=== PATIENT | female | born 1970 | race Caucasian/White ===

== ENCOUNTER 2016-08-05 12:44 | Emergency (ER) | payer OTHER ==
[2016-08-05] MEDS ORDERED: NS 0.9% 1000 ML* 1,000 ML IV ONE (13:53)
[2016-08-05] MEDS ORDERED: Ketorolac INJ* 30 MG/ML 1 ML VIAL IV ONE (13:53)
[2016-08-05] MEDS ORDERED: Clindamycin 900 MG IVPREMIX(* 900 MG/50 ML SDV IV ONE (13:53)
[2016-08-05 14:19] LABS: Hematocrit 38 % (35-47); Hemoglobin 12.6 g/dl (12.0-16.0); Mean Corpuscular HGB Conc 33 g/dl (31-36); Mean Corpuscular Hemoglobin 29 pg (27-31); Mean Corpuscular Volume 89 fL (80-97); Mean Platelet Volume 8 um3 (7.4-10.4); Red Blood Count 4.29 10^6/ul (4.0-5.4); Red Cell Distribution Width 14 % (10.5-15); White Blood Count 8.9 10^3/ul (3.5-10.8)
[2016-08-05 14:35] LABS: Albumin 3.8 g/dL (3.2-5.2); C Reactive Protein 21.47 mg/L (< 5.00); Calcium 9.5 mg/dL (8.6-10.3); EGFR African American 129.7 (>60); EGFR Non-African American 100.9 (>60); Globulin 3.5 g/dL (2-4); Potassium 4.3 mmol/L (3.5-5.0); Total Bilirubin 0.5 mg/dL (0.2-1.0); Total Protein 7.3 g/dL (6.4-8.9)
[2016-08-05] MEDS ORDERED: Morphine INJ* 4 MG/ML 1 ML SYRINGE IV ONE (14:59)
[2016-08-05] MEDS ORDERED: Ondansetron INJ* 2 MG/ML VIAL IV ONE (14:59)
[2016-08-05] MEDS ORDERED: Ondansetron INJ* 2 MG/ML VIAL ONE (15:00)
[2016-08-05] MEDS ORDERED: Morphine INJ* 4 MG/ML 1 ML SYRINGE ONE (15:00)
[2016-08-05] MEDS ORDERED: Iohexol 300* (CONTRAST) 10 ML SDV IV ONE (15:25)
--- NOTE | 2016-08-05 15:42 | RAD ---
HISTORY: Right eyelid and facial swelling COMPARISONS: None TECHNIQUE: Multiple contiguous axial CT scans were obtained of the face without intravenous contrast, with coronal and sagittal multiplanar reformations. FINDINGS: BONES: There is no displaced fracture or dislocation. The orbital rim is intact. The zygomatic arch is intact. The pterygoid plates are intact. ORBITS: There is preorbital soft tissue swelling of the right without post septal or intraconal extension. Within the preseptal soft tissue swelling, there is a peripherally enhancing loculated fluid collection measuring approximately 0.7 x 0.7 x 1.4 cm in size. PARANASAL SINUSES: The paranasal sinuses are clear. BRAIN AND SOFT TISSUE: Unremarkable. OTHER: None. IMPRESSION: RIGHT ORBITAL PRESEPTAL SOFT TISSUE SWELLING WITH A LOCULATED FLUID COLLECTION MEASURING APPROXIMATELY 1.4 CM IN SIZE, CONSISTENT WITH SUBCUTANEOUS ABSCESS. THERE IS NO POST SEPTAL OR INTRACONAL EXTENSION
--- NOTE | 2016-08-05 16:01 | ED ---
Throat Pain/Nasal Congestion - HPI Summary HPI Summary: Patient presents with right eyelid swelling and redness for approximately one week that began after she tried to pop a pimple on her eyelid. At first the eyelid was only mildly swollen and after a few days she thought it was improving. Then two days ago it became worse again, so she went to see her PCP. They placed her on keflex and gave her a shot of rocephine and had her follow- up then next day. She had not improved but had not worsened, so she followed-up again today and was referred to the ED since she had not improved. She is uncertain if she has pain with eye movement, but the lid is exquisitely tender. She has been using ice and ibuprofen for pain. She denies fever, chills, or pus- like drainage. She has a scab on the right eyelid and has only had scant clear drainage. 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 Onset/Duration: Gradual Onset Severity: Severe Associated Signs And Symptoms: Positive: Negative Cough: None <Sunny Cedillo - Last Filed: 08/05/16 16:40> <Mirian Nieves - Last Filed: 08/06/16 07:58> - History of Current Complaint Chief Complaint: EDEyeProblem Time Seen by Provider: 08/05/16 13:14 - Allergies/Home Medications Allergies/Adverse Reactions: Allergies Allergy/AdvReac Type Severity Reaction Status Date / Time Sulfa Drugs Allergy Severe Hives Verified 01/03/14 16:27 Clarithromycin [From Biaxin] AdvReac Unknown See Comment Verified 01/03/14 16:27 PMH/Surg Hx/FS Hx/Imm Hx Endocrine/Hematology History: Reports: Other Endocrine/Hematological Disorders - LUPUS Denies: Hx Anticoagulant Therapy, Hx Blood Disorders, Hx Blood Transfusions, Hx Bone Marrow Disease, Hx Diabetes, Hx Systemic Lupus Erythematosus, Hx Sickle Cell Disease, Hx Thyroid Disease, Hx Anemia, Hx Unexplained Bleeding Cardiovascular History: Denies: Hx Congestive Heart Failure, Hx Hypertension History: Denies: Hx Renal Disease Musculoskeletal History: Reports: Hx Fibromyalgia Denies: Hx Arthritis, Hx Back Problems, Hx Bursitis, Hx Congenital Bone Abnormalities, Hx Gout, Hx Orthopedic Injury, Hx Osteoporosis, Hx Scoliosis, Hx Tendonitis, Other Musculoskeletal History - Cancer History Hx Chemotherapy: No Hx Radiation Therapy: No - Surgical History Surgery Procedure, Year, and Place: APPENDECTOMY, CHOLECYSTECTOMY, UTERINE ABLASION, BILAT LEG COMPARTMENT SYNDROME, TUBAL Infectious Disease History: No Infectious Disease History: Denies: Traveled Outside the [place] in Last 30 Days - Family History Known Family History: Positive: None - Social History Occupation: Unemployed Lives: With Family Alcohol Use: None Substance Use Type: Reports: Heroin, Other Substance Use Comment - Amount & Last Used: injects opana Smoking Status (MU): Heavy Every Day Tobacco Smoker Type: Cigarettes Amount Used/How Often: 1PPD Length of Time of Smoking/Using Tobacco: on and off for 20 years Have You Smoked in the Last Year: Yes Cessation Counseling: Patient Advised to Stop <Sunny Cedillo - Last Filed: 08/05/16 16:40> Review of Systems Negative: Fever, Chills Positive: Erythema - right eyelid. Negative: Blurred Vision, Diplopia, Drainage Negative: Headache All Other Systems Reviewed And Are Negative: Yes <Sunny Cedillo - Last Filed: 08/05/16 16:40> Physical Exam Triage Information Reviewed: Yes Vital Signs On Initial Exam: Initial Vitals Temp Pulse Resp BP Pulse Ox 97.8 F 73 20 107/72 100 08/05/16 12:55 08/05/16 12:55 08/05/16 12:55 08/05/16 12:55 08/05/16 12:55 Vital Signs Reviewed: Yes Appearance: Positive: Well-Nourished, Ill-Appearing, Pain Distress Skin: Positive: Warm, Skin Color Reflects Adequate Perfusion, Dry, Soft, Erythema @ - right eyelid Head/Face: Positive: Normal Head/Face Inspection Eyes: Positive: EOMI - left, BILLY - left, Conjunctiva Clear - left, Other: - Right eyelid is erythematous with severe edema; there is a healing scab on the central eyelid without obvious drainage; I am unable to open the eyelid due to pain and tension on the tissues. ENT: Positive: Hearing grossly normal, Pharynx normal, TMs normal Neck: Positive: Supple, Nontender, No Lymphadenopathy Respiratory/Lung Sounds: Positive: Breath Sounds Present Cardiovascular: Positive: RRR Neurological: Positive: Sensory/Motor Intact, Alert, Oriented to Person Place, Time, NV Bundle Intact Distally Psychiatric: Positive: Affect/Mood Appropriate AVPU Assessment: Alert <Sunny Cedillo Carmen - Last Filed: 08/05/16 16:40> Vital Signs On Initial Exam: Initial Vitals Temp Pulse Resp BP Pulse Ox 97.8 F 73 20 107/72 100 08/05/16 12:55 08/05/16 12:55 08/05/16 12:55 08/05/16 12:55 08/05/16 12:55 <Mirian Nieves - Last Filed: 08/06/16 07:58> Diagnostics - Vital Signs Vital Signs Temp Pulse Resp BP Pulse Ox 08/05/16 15:05 20 08/05/16 13:04 97.8 F 73 18 107/72 97 08/05/16 12:55 97.8 F 73 20 107/72 100 - Laboratory Lab Results: Lab Results 08/05/16 08/05/16 Range/Units 14:00 14:00 WBC 8.9 (3.5-10.8) 10^3/ul RBC 4.29 (4.0-5.4) 10^6/ul Hgb 12.6 (12.0-16.0) g/dl Hct 38 (35-47) % MCV 89 (80-97) fL MCH 29 (27-31) pg MCHC 33 (31-36) g/dl RDW 14 (10.5-15) % Plt Count 210 (150-450) 10^3/ul MPV 8 (7.4-10.4) um3 Neut % (Auto) 67.8 (38-83) % Lymph % (Auto) 24.1 L (25-47) % Brantley % (Auto) 5.9 (1-9) % Eos % (Auto) 1.3 (0-6) % Baso % (Auto) 0.9 (0-2) % Absolute Neuts (auto) 6.0 (1.5-7.7) 10^3/ul Absolute Lymphs (auto) 2.1 (1.0-4.8) 10^3/ul Absolute Monos (auto) 0.5 (0-0.8) 10^3/ul Absolute Eos (auto) 0.1 (0-0.6) 10^3/ul Absolute Basos (auto) 0.1 (0-0.2) 10^3/ul Absolute Nucleated RBC 0.01 10^3/ul Nucleated RBC % 0.1 Sodium 133 (133-145) mmol/L Potassium 4.3 (3.5-5.0) mmol/L Chloride 101 (101-111) mmol/L Carbon Dioxide 25 (22-32) mmol/L Anion Gap 7 (2-11) mmol/L BUN 12 (6-24) mg/dL Creatinine 0.63 (0.51-0.95) mg/dL Est GFR ( Amer) 129.7 (>60) Est GFR (Non-Af Amer) 100.9 (>60) BUN/Creatinine Ratio 19.0 (8-20) Glucose 95 (70-100) mg/dL Calcium 9.5 (8.6-10.3) mg/dL Total Bilirubin 0.50 (0.2-1.0) mg/dL AST 13 (13-39) U/L ALT 10 (7-52) U/L Alkaline Phosphatase 101 (34-104) U/L C-Reactive Protein 21.47 H (< 5.00) mg/L Total Protein 7.3 (6.4-8.9) g/dL Albumin 3.8 (3.2-5.2) g/dL Globulin 3.5 (2-4) g/dL Albumin/Globulin Ratio 1.1 (1-3) Result Diagrams: 08/05/16 14:00 08/05/16 14:00 Lab Statement: Any lab studies that have been ordered have been reviewed, and results considered in the medical decision making process. - CT No standard instances CT Interpretation: Positive (See Comments) CT Interpretation Completed By: Radiologist - CT orbit shows 1.4cm collection of loculated fluid in the preseptal space <Sunny Cedillo - Last Filed: 08/05/16 16:40> - Vital Signs Vital Signs Temp Pulse Resp BP Pulse Ox 08/05/16 17:07 97.8 F 82 18 118/76 98 08/05/16 15:05 20 08/05/16 13:04 97.8 F 73 18 107/72 97 08/05/16 12:55 97.8 F 73 20 107/72 100 - Laboratory Lab Results: Lab Results 08/05/16 08/05/16 Range/Units 14:00 14:00 WBC 8.9 (3.5-10.8) 10^3/ul RBC 4.29 (4.0-5.4) 10^6/ul Hgb 12.6 (12.0-16.0) g/dl Hct 38 (35-47) % MCV 89 (80-97) fL MCH 29 (27-31) pg MCHC 33 (31-36) g/dl RDW 14 (10.5-15) % Plt Count 210 (150-450) 10^3/ul MPV 8 (7.4-10.4) um3 Neut % (Auto) 67.8 (38-83) % Lymph % (Auto) 24.1 L (25-47) % Brantley % (Auto) 5.9 (1-9) % Eos % (Auto) 1.3 (0-6) % Baso % (Auto) 0.9 (0-2) % Absolute Neuts (auto) 6.0 (1.5-7.7) 10^3/ul Absolute Lymphs (auto) 2.1 (1.0-4.8) 10^3/ul Absolute Monos (auto) 0.5 (0-0.8) 10^3/ul Absolute Eos (auto) 0.1 (0-0.6) 10^3/ul Absolute Basos (auto) 0.1 (0-0.2) 10^3/ul Absolute Nucleated RBC 0.01 10^3/ul Nucleated RBC % 0.1 Sodium 133 (133-145) mmol/L Potassium 4.3 (3.5-5.0) mmol/L Chloride 101 (101-111) mmol/L Carbon Dioxide 25 (22-32) mmol/L Anion Gap 7 (2-11) mmol/L BUN 12 (6-24) mg/dL Creatinine 0.63 (0.51-0.95) mg/dL Est GFR ( Amer) 129.7 (>60) Est GFR (Non-Af Amer) 100.9 (>60) BUN/Creatinine Ratio 19.0 (8-20) Glucose 95 (70-100) mg/dL Calcium 9.5 (8.6-10.3) mg/dL Total Bilirubin 0.50 (0.2-1.0) mg/dL AST 13 (13-39) U/L ALT 10 (7-52) U/L Alkaline Phosphatase 101 (34-104) U/L C-Reactive Protein 21.47 H (< 5.00) mg/L Total Protein 7.3 (6.4-8.9) g/dL Albumin 3.8 (3.2-5.2) g/dL Globulin 3.5 (2-4) g/dL Albumin/Globulin Ratio 1.1 (1-3) Result Diagrams: 08/05/16 14:00 08/05/16 14:00 Lab Statement: Any lab studies that have been ordered have been reviewed, and results considered in the medical decision making process. <Mirian Nieves - Last Filed: 08/06/16 07:58> Re-Evaluation - Re-Evaluation First Eval Re-Evaluation Time: 15:00 Change: Unchanged Comment: pain not improved Second Eval Re-Evaluation Time: 16:00 Change: Improved - pain improved with morphine <Sunny Cedillo - Last Filed: 08/05/16 16:40> EENT Course/Dx - Course Course Of Treatment: We do not have an ophthomologist or plastic surgeon sales representative education courses at [facility], therefore the patient will go to [facility] via private vehicle with the understanding to proceed directly to the ER where Dr. Gonzalez is expecting to evaluate her. She has been given a loading dose of IV antibiotics and pain medication. - Differential Diagnoses Differential Diagnoses: Abrasion, Cellulitis, Conjunctivitis, Corneal Abrasion, Foreign Body, Periorbital/Orbital Cellulitis - Provider Notifications Discussed Care of Patient with: Dr. Nieves, ED attending; Dr. Gonzalez, plastic surgeon with [facility]. <Sunny Cedillo - Last Filed: 08/05/16 16:40> <Mirian Nieves - Last Filed: 08/06/16 07:58> - Diagnoses Provider Diagnoses: Periorbital cellulitis of right eye Discharge <Sunny Cedillo - Last Filed: 08/05/16 16:40> <Mirian Nieves - Last Filed: 08/06/16 07:58> - Discharge Plan Condition: Stable Disposition: HOME Patient Education Materials: Periorbital Cellulitis in Adults (ED) Referrals: Non Staff,Doctor [Primary Care Provider] - Additional Instructions: Please proceed directly to the emergency department at [facility] where you will be evaluated by Dr. Gonzalez with plastic surgery. Use the pain medication provided if needed. Attestations User Type: Provider - I was available for consult. This patient was seen by the advanced practice provider. The patient was not seen by, or examined by me. -Alex <Mirian Nieves - Last Filed: 08/06/16 07:58>
[2016-08-05] MEDS ORDERED: oxyCODONE/Acetamin 5/325 MG* TAB PO ONE (16:52)
[2016-08-05 17:08] VITALS: BP 118/76
== END 2016-08-05 17:08 | disposition home or self-care (01) ==
LOC: ED 12:44
DX: H05.011 Cellulitis of right orbit (principal); H02.843 Edema of right eye, unspecified eyelid
CPT/HCPCS: 36415; 70487; 80053; 85025; 86140; 96374; 96375; 99282; A9270-GY; J1885; J2270; J2405; Q9967

== ENCOUNTER 2018-10-08 16:40 | Emergency (ER) | payer OTHER ==
[2018-10-08 17:03] VITALS: BP 123/87
--- NOTE | 2018-10-08 17:18 | UC ---
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 L eye swollen shut due, no pain with eye movement. Patient states has happened b/l eyes ~ 4-5 times, last occurrence R eye ~ 2017. Has been seen by dermatology, plastics with no official diagnosis, has been dx'd with MRSA in past. - History of Current Complaint Chief Complaint: UCEye Time Seen by Provider: 10/08/18 16:55 Stated Complaint: LEFT EYE CONCERN Hx Obtained From: Patient Hx Last Menstrual Period: ablation ?: No Onset/Duration: Sudden Onset, Lasting Days - x 36 hours Skin Exposure Onset/Duration: Days Ago Timing: Constant Onset Severity: Mild Current Severity: Moderate Pain Intensity: 5 Pain Scale Used: 0-10 Numeric Location: Face Aggravating Factor(s): Nothing Alleviating Factor(s): Nothing Associated Signs & Symptoms: Negative: Fever, Chills Similar Episode/Dx as: similar occurences ~ 5, last 2016 - Allergy/Home Medications Allergies/Adverse Reactions: Allergies Allergy/AdvReac Type Severity Reaction Status Date / Time clarithromycin [From Biaxin] Allergy photosensit Verified 10/08/18 17:43 ivity Sulfa (Sulfonamide Allergy Hives Verified 10/08/18 17:43 Antibiotics) Home Medications: Home Medications Methadone HCl 110 mg PO DAILY 10/08/18 [History Confirmed 10/08/18] PMH/Surg Hx/FS Hx/Imm Hx Previously Healthy: Yes Other History Of: Negative For: Anticoagulant Therapy - Surgical History Surgical History: Yes Surgery Procedure, Year, and Place: APPENDECTOMY, CHOLECYSTECTOMY, UTERINE ABLASION, BILAT LEG COMPARTMENT SYNDROME, TUBAL - Family History Known Family History: Positive: None - Social History Alcohol Use: None Substance Use Type: Other Substance Use Comment - Amount & Last Used: methadone clinic Smoking Status (MU): Heavy Every Day Tobacco Smoker Type: Cigarettes Amount Used/How Often: 1PPD Length of Time of Smoking/Using Tobacco: on and off for 20 years Have You Smoked in the Last Year: Yes - Immunization History Most Recent Influenza Vaccination: 2012 Most Recent Tetanus Shot: 2007 Most Recent Pneumonia Vaccination: Unknown Review of Systems All Other Systems Reviewed And Are Negative: Yes Skin: Positive: Rash, Other - edema, cellulitis L eye Is Patient Immunocompromised?: No Physical Exam Triage Information Reviewed: Yes Appearance: Well-Appearing, No Pain Distress, Well-Nourished Vital Signs: Initial Vital Signs Temp 98.6 F 10/08/18 16:57 Pulse 94 10/08/18 16:57 Resp 12 10/08/18 16:57 BP 123/87 10/08/18 16:57 Pulse Ox 98 10/08/18 16:57 Vital Signs Reviewed: Yes Eyes: Positive: Conjunctiva Clear, Other: - EMOI, PERRLA-- difficult to determine due to periorbital edema ENT: Positive: Hearing grossly normal, TMs normal Neck: Positive: Supple, Nontender, No Lymphadenopathy. Negative: Nuchal Rigidity Psychological Exam: Normal Skin: Positive: Other - L eye- perioribital edema worse from 3-9 oclock with induration over lateral upper eye lid, no stye seen, no drainage noted. TTP over induration. ERythema extending from brow to ~ 2cm distal to lower eye lid margin. no TTP over lower eye lid. Course/Dx - Course Course Of Treatment: case discussed with Dr. Hemphill, IM Rocephin, PO clindamycin given in clinic, continue with clindamycin, amox x 10 days, follow up with PCP or at urgent care within 24 hours to assess for improvement, go to ER with any worsening. - Differential Diagnoses - Skin Complaint Differential Diagnoses: Angioedema, Cellulitis - Diagnoses Provider Diagnosis: Periorbital cellulitis of left eye Discharge - Sign-Out/Discharge Documenting (check all that apply): Patient Departure All imaging exams completed and their final reports reviewed: No Studies - Discharge Plan Condition: Good Disposition: HOME Prescriptions: Amoxicillin PO (*) [Amoxicillin 875 MG (*)] 875 mg PO BID #20 tab Clindamycin Cap(NF) [Clindamycin Cap 300 mg Cap(NF)] 300 mg PO TID #30 cap Patient Education Materials: Periorbital Cellulitis in Adults (ED) Referrals: Jody Valencia MD [Primary Care Provider] - 1 Day (FOllow up tomorrow or return to urgent care if you cannot get appointment ) Additional Instructions: - Antibiotics as directed x 10 days - Continue to monitor- IF worsening, please go to ER or with headache, nausea, fever/ chills. - Follow up with Primary physician tomorrow to re-evaluation - Billing Disposition and Condition Condition: GOOD Disposition: Home
[2018-10-08] MEDS ORDERED: cefTRIAXone VIAL(*) 1,000 MG VIAL IM ONE (17:30)
[2018-10-08] MEDS ORDERED: Lidocaine 1% MPF* 2 ML VIAL INJ ONE (17:32)
[2018-10-08] MEDS ORDERED: Sulfamethox/Trimethoprim DS 800/160* TAB PO ONE (17:34)
[2018-10-08] MEDS ORDERED: Clindamycin CAP* 150 MG PO ONE (17:44)
== END 2018-10-08 18:03 | disposition home or self-care (01) ==
LOC: UCCORT 16:40
DX: L03.213 Periorbital cellulitis (principal); F17.210 Nicotine dependence, cigarettes, uncomplicated; F11.90 Opioid use, unspecified, uncomplicated; Z88.1 Allergy status to other antibiotic agents; Z88.2 Allergy status to sulfonamides
CPT/HCPCS: 96372; 99212; A9270-GY; G0463; J0696

== ENCOUNTER 2018-10-10 13:38 | Emergency (ER) | payer OTHER ==
[2018-10-10 15:09] VITALS: BP 129/89
--- NOTE | 2018-10-10 15:48 | UC ---
UC General HPI - History of Current Complaint Chief Complaint: UCEye Stated Complaint: RECHECK LEFT EYE Time Seen by Provider: 10/10/18 15:38 Hx Last Menstrual Period: ablation Pain Intensity: 2 - Allergy/Home Medications Allergies/Adverse Reactions: Allergies Allergy/AdvReac Type Severity Reaction Status Date / Time clarithromycin [From Biaxin] Allergy photosensit Verified 10/08/18 17:43 ivity Sulfa (Sulfonamide Allergy Hives Verified 10/08/18 17:43 Antibiotics) PMH/Surg Hx/FS Hx/Imm Hx Other History Of: Negative For: Anticoagulant Therapy - Surgical History Surgical History: Yes Surgery Procedure, Year, and Place: APPENDECTOMY, CHOLECYSTECTOMY, UTERINE ABLASION, BILAT LEG COMPARTMENT SYNDROME, TUBAL - Family History Known Family History: Positive: None - Social History Alcohol Use: None Substance Use Type: Other Substance Use Comment - Amount & Last Used: methadone clinic Smoking Status (MU): Heavy Every Day Tobacco Smoker Type: Cigarettes Amount Used/How Often: 1PPD Length of Time of Smoking/Using Tobacco: on and off for 20 years Have You Smoked in the Last Year: Yes - Immunization History Most Recent Influenza Vaccination: 2012 Most Recent Tetanus Shot: 2007 Most Recent Pneumonia Vaccination: Unknown Physical Exam Vital Signs: Initial Vital Signs Temp 98.7 F 10/10/18 15:03 Pulse 81 10/10/18 15:03 Resp 15 10/10/18 15:03 BP 129/89 10/10/18 15:03 Pulse Ox 100 10/10/18 15:03 Discharge - Discharge Plan Referrals: Jody Valencia MD [Primary Care Provider] -
--- NOTE | 2018-10-10 15:52 | UC ---
General HPI - HPI Summary HPI Summary: pt was seen here 2 days ago for an infection around her L eye. she was tx with Clindamycin and Amoxicillin. she returns for a recheck. she notes the eye is much better. it is no longer swollen shut. she states hx of the same and has required drainage in the past. + hx MRSA. No fever or headache. no visual disturbances. - History of Current Complaint Chief Complaint: UCEye Stated Complaint: RECHECK LEFT EYE Time Seen by Provider: 10/10/18 15:38 Hx Obtained From: Patient Hx Last Menstrual Period: ablation Onset/Duration: Gradual Onset Pain Intensity: 2 Associated Signs & Symptoms: Negative: Fever, Headache - Allergy/Home Medications Allergies/Adverse Reactions: Allergies Allergy/AdvReac Type Severity Reaction Status Date / Time clarithromycin [From Biaxin] Allergy photosensit Verified 10/08/18 17:43 ivity Sulfa (Sulfonamide Allergy Hives Verified 10/08/18 17:43 Antibiotics) PMH/Surg Hx/FS Hx/Imm Hx - Additional Past Medical History Additional PMH: MRSA Other History Of: Negative For: Anticoagulant Therapy - Surgical History Surgical History: Yes Surgery Procedure, Year, and Place: APPENDECTOMY, CHOLECYSTECTOMY, UTERINE ABLASION, BILAT LEG COMPARTMENT SYNDROME, TUBAL - Family History Known Family History: Positive: None - Social History Alcohol Use: None Substance Use Type: Other Substance Use Comment - Amount & Last Used: methadone clinic Smoking Status (MU): Heavy Every Day Tobacco Smoker Type: Cigarettes Amount Used/How Often: 1PPD Length of Time of Smoking/Using Tobacco: on and off for 20 years Have You Smoked in the Last Year: Yes - Immunization History Most Recent Influenza Vaccination: 2012 Most Recent Tetanus Shot: 2007 Most Recent Pneumonia Vaccination: Unknown Review of Systems All Other Systems Reviewed And Are Negative: Yes Constitutional: Negative: Fever, Chills Skin: Positive: Rash - L eye Eyes: Negative: Blurred Vision, Diplopia, Drainage, Eye Redness, Photophobia ENT: Negative: Sinus Congestion Neurological: Negative: Headache Physical Exam Triage Information Reviewed: Yes Appearance: Well-Appearing Vital Signs: Initial Vital Signs Temp 98.7 F 10/10/18 15:03 Pulse 81 10/10/18 15:03 Resp 15 10/10/18 15:03 BP 129/89 10/10/18 15:03 Pulse Ox 100 10/10/18 15:03 Vital Signs Reviewed: Yes Eyes: Positive: Other: - Mild-moderated redness and swelling to L upper-outter lid. Slight pink and swelling around L orbit. Slight L preauricular adenopathy. PERRL, EOMI, AC's clear. Conjunctiva are clear. EOMI's are painless. ENT: Positive: Pharynx normal, TMs normal. Negative: Nasal congestion, Nasal drainage Neck: Positive: Supple, Nontender, No Lymphadenopathy Respiratory: Positive: No respiratory distress Cardiovascular: Positive: RRR Musculoskeletal: Positive: ROM Intact Neurological: Positive: Alert Psychological: Positive: Age Appropriate Behavior Skin Exam: Normal Course/Dx - Differential Dx - Multi-Symptom Differential Diagnoses: Other - no concern for orbital cellulitis. based on hx and exam, much improved periorbital cellulitis. since hx same that required I&D , will refer to opthamology for f/u. - Diagnoses Provider Diagnosis: Periorbital cellulitis of left eye Discharge - Sign-Out/Discharge Documenting (check all that apply): Patient Departure All imaging exams completed and their final reports reviewed: No Studies - Discharge Plan Condition: Stable Disposition: HOME Patient Education Materials: Periorbital Cellulitis in Adults (ED) Referrals: Maxi Nazario MD [Medical Doctor] - 1 Day Additional Instructions: CONTINUE THE ANTIBIOTICS DIRECTED. GO TO THE ER FOR ANY WORSENING. - Billing Disposition and Condition Condition: STABLE Disposition: Home
== END 2018-10-10 16:00 | disposition home or self-care (01) ==
LOC: UCCORT 13:38
DX: Z51.89 Encounter for other specified aftercare (principal); L03.213 Periorbital cellulitis; Z86.14 Personal history of Methicillin resistant Staphylococcus aureus infection; Z88.1 Allergy status to other antibiotic agents; Z88.2 Allergy status to sulfonamides
CPT/HCPCS: 99211; G0463